=== PATIENT | female | born 1960 | race Caucasian/White ===

== ENCOUNTER 2024-02-26 11:41 | Emergency (ER) | payer OTHER ==
[~2024-02-26] VITALS: Ht 162.5 cm; Wt 68.0 kg
[2024-02-26] MEDS ORDERED: Tdap Vaccine 0.5 ML SYR (Adult Vaccine) IM ONE (12:20)
[2024-02-26] MEDS ORDERED: ACETAMINOPHEN 325 MG TAB PO ONE (12:20)
[2024-02-26] MEDS ORDERED: EPINEPHrine/Lidocaine Hydroc 10 ML VIAL SC ONE (12:20)
== END 2024-02-26 13:05 | disposition home or self-care (01) ==
LOC: ED 11:41
DX: S81.811A Laceration without foreign body, right lower leg, initial encounter (principal); W22.8XXA Striking against or struck by other objects, initial encounter; Y93.89 Activity, other specified; Y92.009 Unspecified place in unspecified non-institutional (private) residence as the place of occurrence of the external cause; Y99.8 Other external cause status